=== PATIENT | female | born 2000 ===

== ENCOUNTER 2020-09-05 04:11 | Emergency (ER) | payer MEDICAID ==
[~2020-09-05] VITALS: Ht 162.6 cm; Wt 91.6 kg
[2020-09-05 04:13] VITALS: BP 127/64
== END 2020-09-05 04:29 | disposition left against medical advice (07) ==
LOC: ED 04:15
DX: Z53.21 Procedure and treatment not carried out due to patient leaving prior to being seen by health care provider (principal)